=== PATIENT | male | born 1975 | race African-American/Black ===

== ENCOUNTER 2018-10-10 11:08 | Emergency (ER) | payer OTHER ==
[~2018-10-10] VITALS: Ht 188 cm; Wt 109.0 kg
[2018-10-10] MEDS ORDERED: HYDROCODONE/ACETAMINOPHEN 5/325MG TABLET PO ONE (12:00)
[2018-10-10] MEDS ORDERED: ONDANSETRON 4MG ODT PO ONE (12:00)
[2018-10-10 13:14] VITALS: BP 155/91
== END 2018-10-10 13:14 | disposition home or self-care (01) ==
LOC: ER 11:08
DX: S52.122A Displaced fracture of head of left radius, initial encounter for closed fracture (principal); F17.200 Nicotine dependence, unspecified, uncomplicated; W18.39XA Other fall on same level, initial encounter; Y93.89 Activity, other specified; Y92.89 Other specified places as the place of occurrence of the external cause; Y99.8 Other external cause status
CPT/HCPCS: 29105; 73080; 73090; 99283; Q0162; A4565

== ENCOUNTER 2020-06-09 11:48 | Inpatient (IN) | payer BC, OTHER ==
[~2020-06-09] VITALS: Ht 188 cm; Wt 115.2 kg
[2020-06-09 12:50] LABS: EOSINOPHILS % 0.3 % (0.0-5.0); HEMOGLOBIN. 15.3 g/dL (14.0-18.0); LYMPHOCYTES % 30.1 % (20.0-50.0); MEAN CORPUSCULAR HEMOGLOBIN 30.7 pg (28.0-32.0); MEAN CORPUSCULAR VOLUME 94.4 fL (80.0-94.0); MEAN PLATELET VOLUME 11.2 fl (7.4-10.4); NEUTROPHILS % 60.6 % (40.0-76.0); PLATELET 167 x1000/uL (130-400); RED BLOOD CELL COUNT 4.98 mill/uL (4.7-6.1); RED CELL DISTRIBUTION WIDTH 14.2 % (11.6-14.6)
[2020-06-09 12:55] LABS: CHLORIDE 104 mEq/L (98-107)
[2020-06-09 12:59] LABS: PROTHROMBIN TIME 10.2 sec (9.6-11.0)
[2020-06-09] MEDS ORDERED: INSULIN REGULAR (DRIP) 100 UNITS in SODIUM CHLORIDE 0.9% 99 ML IV ONE (14:30)
[2020-06-09] MEDS ORDERED: POTASSIUM CHLORIDE 20MEQ/PACKET PO ONE (14:30)
[2020-06-09] MEDS ORDERED: SODIUM CHLORIDE 0.9% 1,000 ML IV ONE ×2 (14:30)
[2020-06-09 15:58] LABS: CLARITY URINE CLEAR (CLEAR); COLOR URINE YELLOW (YELLOW)
[2020-06-09 15:59] LABS: KETONES URINE 4+ (NEGATIVE); PH URINE 5.5 (4.5-8.0); PROTEIN URINE 2+ (NEGATIVE); SPECIFIC GRAVITY URINE 1.037 (1.005-1.030)
[2020-06-09 16:00] LABS: LEUKOCYTE ESTERASE URINE NEGATIVE (NEGATIVE); NITRITE URINE NEGATIVE (NEGATIVE); OCCULT BLOOD URINE 2+ (NEGATIVE); UROBILINOGEN URINE 0.2 E.U./dL (0.2-1.0)
[2020-06-09] MEDS ORDERED: INSULIN REGULAR (DRIP) 100 UNITS in SODIUM CHLORIDE 0.9% 99 ML IV NR (16:15)
[2020-06-09 17:24] LABS: *AMPHETAMINES SCREEN URINE NEGATIVE (NEGATIVE); *BARBITURATES SCREEN URINE NEGATIVE (NEGATIVE); *BENZODIAZEPINES SCREEN URINE NEGATIVE (NEGATIVE); *COCAINE SCREEN URINE NEGATIVE (NEGATIVE); METHADONE URINE SCREEN NEGATIVE (NEGATIVE); OPIATES URINE SCREEN NEGATIVE (NEGATIVE)
[2020-06-09 17:25] LABS: CANNABINOID URINE SCREEN NEGATIVE (NEGATIVE); PHENCYCLIDINE URINE SCREEN NEGATIVE (NEGATIVE)
[2020-06-10] VITALS (27 sets, daily range): BP systolic 92–152; BP diastolic 33–96
[2020-06-10] MEDS ORDERED: POTASSIUM CHLORIDE INJ 30 MEQ in DEXT 5%/0.9% NACL 1,000 ML IV SCH (09:45)
[2020-06-10] MEDS ORDERED: CLONIDINE 0.1MG TABLET PO PRN (09:45)
[2020-06-10] MEDS ORDERED: DIPHENHYDRAMINE 50MG/ML VIAL IV PRN (09:45)
[2020-06-10] MEDS ORDERED: ACETAMINOPHEN 325MG TABLET PO PRN (09:45)
[2020-06-10] MEDS ORDERED: ENOXAPARIN 40MG/0.4ML SYR SUBCUT SCH (10:45)
[2020-06-10 12:38] LABS: EOSINOPHILS % 1.7 % (0.0-5.0); HEMATOCRIT. 40.8 % (42.0-52.0); HEMOGLOBIN. 13.5 g/dL (14.0-18.0); MEAN CORPUSCULAR HEMOGLOBIN 30.8 pg (28.0-32.0); MEAN CORPUSCULAR VOLUME 93.4 fL (80.0-94.0); MONOCYTES % 7.3 % (2.0-8.0); PLATELET 124 x1000/uL (130-400); RED BLOOD CELL COUNT 4.37 mill/uL (4.7-6.1); RED CELL DISTRIBUTION WIDTH 13.8 % (11.6-14.6)
[2020-06-10] MEDS: DEXT 5%/0.9% NACL KCL 20MEQ/L 1,000 ML IV SCH ×3 (12:49→22:15)
[2020-06-10 12:55] LABS: CHLORIDE 110 mEq/L (98-107)
[2020-06-10] MEDS ORDERED: LACTULOSE 20G/30ML UDC PO NR ×2 (13:15→21:45)
[2020-06-10 18:30] LABS: CHLORIDE 118 mEq/L (98-107)
[2020-06-10] MEDS ORDERED: DEXTROSE 50% WATER 50ML SYRINGE IV PRN ×4 (19:45→20:30)
[2020-06-10] MEDS ORDERED: BLOOD SUGAR DIAGNOSTIC STRIP TEST SCH (20:00)
[2020-06-10] MEDS: BLOOD SUGAR DIAGNOSTIC STRIP TEST SCH ×3 (20:30→22:15)
[2020-06-10] MEDS ORDERED: INSULIN REGULAR (DRIP) 100 UNITS in SODIUM CHLORIDE 0.9% 100 ML IV SCH ×7 (20:30→21:00)
[2020-06-10] MEDS ORDERED: POTASSIUM CHLORIDE INJ 20 MEQ in DEXT 5%/0.9% NACL 1,000 ML IV SCH (23:00)
[2020-06-11] VITALS (32 sets, daily range): BP systolic 99–144; BP diastolic 55–97
[2020-06-11 00:02] LABS: CHLORIDE 117 mEq/L (98-107)
[2020-06-11] MEDS: BLOOD SUGAR DIAGNOSTIC STRIP TEST SCH ×12 (00:29→21:26)
[2020-06-11] MEDS: DEXT 5%/0.9% NACL KCL 20MEQ/L 1,000 ML IV SCH ×2 (02:28→06:43)
[2020-06-11] MEDS ORDERED: POTASSIUM CHLORIDE 20MEQ/PACKET PO SCH (02:30)
[2020-06-11 05:24] LABS: CHLORIDE 118 mEq/L (98-107)
[2020-06-11 05:32] LABS: LDL CHOLESTEROL 131 mg/dL (5-100)
[2020-06-11 05:34] LABS: HDL CHOLESTEROL 40 mg/dL (40-59)
[2020-06-11 06:27] LABS: EOSINOPHILS % 2.5 % (0.0-5.0); HEMATOCRIT. 36.5 % (42.0-52.0); HEMOGLOBIN. 12.2 g/dL (14.0-18.0); LYMPHOCYTES % 44.6 % (20.0-50.0); MEAN CORPUSCULAR HEMOGLOBIN 31.1 pg (28.0-32.0); MEAN CORPUSCULAR VOLUME 93.1 fL (80.0-94.0); MEAN PLATELET VOLUME 11.7 fl (7.4-10.4); NEUTROPHILS % 43.9 % (40.0-76.0); PLATELET 114 x1000/uL (130-400); RED BLOOD CELL COUNT 3.91 mill/uL (4.7-6.1); RED CELL DISTRIBUTION WIDTH 13.8 % (11.6-14.6)
[2020-06-11] MEDS: INSULIN LISPRO 100 UNITS/ML SUBCUT SCH ×3 (07:30→17:30)
[2020-06-11] MEDS: INSULIN LISPRO (LOW DOSE) 100 UNITS/ML SUBCUT SCH ×3 (07:30→18:44)
[2020-06-11] MEDS ORDERED: INSULIN LISPRO 100 UNITS/ML SUBCUT SCH (07:30)
[2020-06-11] MEDS ORDERED: ENOXAPARIN 40MG/0.4ML SYR SUBCUT SCH (09:00)
[2020-06-11] MEDS ORDERED: INSULIN GLARGINE UD 100 UNITS/ML SYR SUBCUT SCH ×2 (10:00→23:00)
[2020-06-11] MEDS: SODIUM CHL 0.45% + KCL 20MEQ/L 1,000 ML IV SCH ×2 (10:29→23:50)
[2020-06-11 10:42] LABS: CHLORIDE 114 mEq/L (98-107)
[2020-06-11 10:52] LABS: T4 FREE 1.08 ng/dL (0.76-1.46)
[2020-06-11] MEDS ORDERED: ENOXAPARIN 30MG/0.3ML SYR SUBCUT SCH (21:00)
[2020-06-12] MEDS ORDERED: BLOOD SUGAR DIAGNOSTIC STRIP TEST SCH (03:00)
[2020-06-12] MEDS: SODIUM CHL 0.45% + KCL 20MEQ/L 1,000 ML IV SCH (05:00)
[2020-06-12 06:36] LABS: BASOPHILS % 0.9 % (0.0-2.0); EOSINOPHILS % 1.5 % (0.0-5.0); HEMATOCRIT. 37.4 % (42.0-52.0); HEMOGLOBIN. 12.6 g/dL (14.0-18.0); LYMPHOCYTES % 44.8 % (20.0-50.0); MEAN CORPUSCULAR HEMOGLOBIN 30.7 pg (28.0-32.0); MEAN CORPUSCULAR VOLUME 91.6 fL (80.0-94.0); MEAN PLATELET VOLUME 11.4 fl (7.4-10.4); MONOCYTES % 8.2 % (2.0-8.0); NEUTROPHILS % 44.6 % (40.0-76.0); PLATELET 118 x1000/uL (130-400); RED BLOOD CELL COUNT 4.09 mill/uL (4.7-6.1); RED CELL DISTRIBUTION WIDTH 13.4 % (11.6-14.6)
[2020-06-12 06:38] LABS: CHLORIDE 112 mEq/L (98-107)
[2020-06-12] MEDS ORDERED: INSULIN LISPRO 100 UNITS/ML SUBCUT SCH (07:30)
[2020-06-12] MEDS ORDERED: INSULIN GLARGINE UD 100 UNITS/ML SYR SUBCUT SCH (10:00)
== END 2020-06-12 07:30 | disposition left against medical advice (07) | DRG 639 ==
LOC: ER 11:48 → MICUSO 15:46 → 5EST 06-10 09:58
PROVIDERS: ADMIT Internal Medicine; ATTEND Internal Medicine
DX: E11.10 Type 2 diabetes mellitus with ketoacidosis without coma (principal); K42.9 Umbilical hernia without obstruction or gangrene; E78.5 Hyperlipidemia, unspecified; F12.90 Cannabis use, unspecified, uncomplicated; K59.00 Constipation, unspecified; K76.0 Fatty (change of) liver, not elsewhere classified; F17.210 Nicotine dependence, cigarettes, uncomplicated; Z71.6 Tobacco abuse counseling
CPT/HCPCS: 36415; 71045; 74176; 80048; 80053; 80061; 80305; 81003; 82533; 82962; 83036; 83519; 83605; 84439; 84443; 84484; 84681; 85025; 86850; 86900; 93005; 93970; 99291; J1650; J1815; J3480; J7030; J7042; J7050

== ENCOUNTER 2020-06-12 14:24 | Emergency (ER) | payer BC ==
[~2020-06-12] VITALS: Ht 188 cm; Wt 114.0 kg
[2020-06-12 15:06] VITALS: BP 132/78
== END 2020-06-12 15:07 | disposition home or self-care (01) ==
LOC: ER 14:24
DX: E11.10 Type 2 diabetes mellitus with ketoacidosis without coma (principal); K59.00 Constipation, unspecified
CPT/HCPCS: 82962; 99281; 99283

== ENCOUNTER 2022-04-19 12:21 | Emergency (ER) | payer BC ==
[~2022-04-19] VITALS: Ht 185.4 cm; Wt 103.0 kg
[2022-04-19] MEDS ORDERED: IBUPROFEN 600MG TABLET PO ONE (14:15)
[2022-04-19 14:31] VITALS: BP 177/105
[2022-04-19] MEDS ORDERED: IBUP-2029 MT (16:01)
[2022-04-19] MEDS ORDERED: CYCL10TA21 MT (16:01)
== END 2022-04-19 16:19 | disposition home or self-care (01) ==
LOC: ER 12:21
DX: R07.89 Other chest pain (principal); M25.511 Pain in right shoulder; G89.11 Acute pain due to trauma; R03.0 Elevated blood-pressure reading, without diagnosis of hypertension; E11.9 Type 2 diabetes mellitus without complications
CPT/HCPCS: 71045; 73030; 99284